=== PATIENT | female | born 1965 | race Caucasian/White ===

== ENCOUNTER 2024-03-15 16:06 | Emergency (ER) | payer BC ==
[2024-03-15] MEDS: Lidocaine 1% 20 ML MDV INJECT ONE (16:27)
[2024-03-15 16:34] VITALS: BP 135/82; PULSE 88
[2024-03-15] MEDS: Bacitracin/Neomycin/Polymyxin B Oint 0.9 GM U/D Packet ONE (16:35)
[2024-03-15] MEDS: Lidocaine 1% 20 ML MDV ONE (16:35)
[2024-03-15] MEDS: Bacitracin/Neomycin/Polymyxin B Oint 0.9 GM U/D Packet TOP ONE (16:39)
== END 2024-03-15 16:55 | disposition home or self-care (01) ==
LOC: KA.ED 16:06
DX: S71.112A Laceration without foreign body, left thigh, initial encounter (principal); F17.210 Nicotine dependence, cigarettes, uncomplicated; Z88.7 Allergy status to serum and vaccine; Z91.048 Other nonmedicinal substance allergy status; Z79.899 Other long term (current) drug therapy; Z90.710 Acquired absence of both cervix and uterus; W26.8XXA Contact with other sharp object(s), not elsewhere classified, initial encounter
CPT/HCPCS: 12004; 99282; J3490